=== PATIENT | female | born 2000 | race Two or more races ===

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

== ENCOUNTER 2023-05-28 15:24 | Emergency (ER) | payer OTHER ==
[~2023-05-28] VITALS: Ht 172.7 cm; Wt 52.6 kg
[2023-05-28 18:04] LABS: HEMATOCRIT 33.8 % (36.0-45.00); HEMOGLOBIN 11.8 g/dL (12.0-15.00); MEAN CELL VOLUME 86.8 fL (80.00-100.00); MEAN CORPUSCULAR HEMOGLOBIN 30.4 pg (27.00-32.0); PLATELET COUNT 201 K/uL (150-450)
[2023-05-28 18:21] LABS: PH,URINE 5.5 (5.0-8.0); URINE APPEARANCE Cloudy; URINE BILIRRUBIN Negative (NEGATIVE); URINE BLOOD Negative; URINE COLOR Yellow; URINE GLUCOSE Negative (NEGATIVE); URINE LEUKOCYTE Moderate; URINE NITRATE Negative; URINE PROTEIN Negative (NEGATIVE)
[2023-05-28 18:24] LABS: URINE BACTERIA 1577.3 uL (0.0-1933); URINE EPITHELIAL CELLS 25.9 uL (0.0-38.8); URINE WBC 158.5 uL (0.0-23.2)
[2023-05-28 18:57] LABS: ALBUMIN 4.1 gm/dL (3.4-5.0); BILIRUBIN TOTAL 0.53 mg/dL (0.3-1.2); CALCIUM 9.2 mg/dL (8.5-10.1); CREATININE SERUM 0.57 mg/dL (0.55-1.02); GFR 132.63; GLOBULINA 3.4 G/DL (2.4-3.5); POTASSIUM 4.05 mEq/L (3.5-5.1); TOTAL PROTEIN 7.5 gm/dL (6.4-8.2)
[2023-05-28] MEDS ORDERED: MACRODANTIN100 M1 PO (19:29)
== END 2023-05-28 19:41 | disposition home or self-care (01) ==
LOC: ER 15:25
PROVIDERS: General Practice
DX: Z34.90 Encounter for supervision of normal pregnancy, unspecified, unspecified trimester (principal); R53.81 Other malaise

== ENCOUNTER 2023-08-13 18:44 | Emergency (ER) | payer OTHER ==
[~2023-08-13] VITALS: Ht 172.7 cm; Wt 51.7 kg
[~2023-08-13 18:44] MED LIST changes: +MACRODANTIN100 M1 PO
[2023-08-13 19:35] LABS: URINE APPEARANCE Clear; URINE BACTERIA 89.4 uL (0.0-1933); URINE BILIRRUBIN Negative (NEGATIVE); URINE BLOOD Negative; URINE COLOR Yellow; URINE EPITHELIAL CELLS 2.7 uL (0.0-38.8); URINE GLUCOSE Negative (NEGATIVE); URINE LEUKOCYTE Trace; URINE NITRATE Negative; URINE PROTEIN Negative (NEGATIVE); URINE UROBILINOGEN 0.2 E.U./dl; URINE WBC 19.3 uL (0.0-23.2)
[2023-08-13 19:36] LABS: HEMATOCRIT 35.8 % (36.0-45.00); HEMOGLOBIN 12.2 g/dL (12.0-15.00); MEAN CELL VOLUME 88.6 fL (80.00-100.00); MEAN CORPUSCULAR HEMOGLOBIN 30.2 pg (27.00-32.0); MEAN CORPUSCULAR HGB CONC 34.1 g/dl (32.0-36.0); PLATELET COUNT 251 K/uL (150-450); RED BLOOD COUNT 4.04 M/uL (4.00-6.00); RED CELL DISTRIBUTION WIDTH 13.7 % (11.5-14.5)
[2023-08-13 19:36] LABS: URINE RBC 1.5 uL (0.0-20.8)
[2023-08-13 20:03] LABS: CALCIUM 9.3 mg/dL (8.5-10.1); CREATININE SERUM 0.59 mg/dL (0.55-1.02); GFR 127.46; POTASSIUM 4.42 mEq/L (3.5-5.1)
== END 2023-08-13 23:05 | disposition home or self-care (01) ==
LOC: ER 18:44
PROVIDERS: Emergency Medicine
DX: O02.1 Missed abortion (principal)